=== PATIENT | male | born 1980 | race Caucasian/White ===

== ENCOUNTER → 2020-09-20 14:45 | Outpatient (BNVA) | payer OTHER, SELFPAY | PROVIDERS: PCP Internal Medicine; Referring Provider Internal Medicine; Visit Provider Internal Medicine Pulmonary Disease | DX: Z76.89 Persons encountering health services in other specified circumstances (principal) ==

== ENCOUNTER 2020-09-22 07:28 | Outpatient (REF) | payer OTHER, SELFPAY ==
[2020-09-22 09:14] LABS: Anion Gap 15 (12-20); Blood Urea Nitrogen 14 mg/dL (9-16); Calcium 8.6 mg/dL (8.4-10.2); Carbon Dioxide 22 mmol/L (22-29); Chloride 108 mmol/L (96-108); Estimated Glomerular Filt Rate > 60; Glucose Fasting 73 mg/dL (60-99); Sodium 141 mmol/L (135-145)
--- NOTE | 2020-09-22 13:24 | PFT_ITS ---
Forced vital capacity is slightly decreased. FEF1, FEF 25-75 were normal. MVV slightly decreased. Post bronchodilator therapy, there is no significant change. Total lung capacity slightly decreased. Diffusion capacity moderately decreased. CONCLUSION: Possible mild restrictive pulmonary disorder. No significant obstructive airway disorder. Decreased MVV, probably effort related and improved to normal after bronchodilator therapy. Decreased diffusion capacity is partly due to technical reason. Clinical correlation recommended. MD JOSE CRUZ Paez/MODL / [id number]
== END 2020-09-22 07:29 | disposition home or self-care (01) ==
LOC: HO.RESP 07:28
PROVIDERS: Visit Provider Internal Medicine Pulmonary Disease
DX: R06.00 Dyspnea, unspecified (principal); R06.02 Shortness of breath
CPT/HCPCS: 80048; 94060; 94727; 94729

== ENCOUNTER 2020-10-04 10:43 | Outpatient (REF) | payer OTHER, SELFPAY ==
--- NOTE | 2020-10-04 10:46 | CT_ITS ---
EXAMINATION: CT ANGIOGRAM CHEST WITH AND WITHOUT CONTRAST (CT PULMONARY ANGIOGRAM FOR PE) CLINICAL INFORMATION: Dyspnea, unspecified COMPARISON: None TECHNIQUE: Prior to contrast administration, noncontrast localization images were obtained. Subsequently, multidetector volumetric imaging was performed from the thoracic inlet to below the diaphragms following the administration of 80 mL Omnipaque 350 intravenous contrast. No contrast reaction reported Sagittal, coronal, and MIP oblique sagittal reformatted images were obtained on the CT workstation, uploaded to PACS, and reviewed. This CT examination was performed using dose optimization techniques as appropriate, variously including the following: *Automated exposure control *Adjustment of mA and/or kV according to patient size (this includes techniques or standardized protocols for targeted exams where dose is matched to indication/reason for exam; i.e. extremities or head) *Use of iterative reconstruction technique Total exam dose-length product 131 mGy-cm FINDINGS: QUALITY OF STUDY/CONTRAST BOLUS: Satisfactory. PULMONARY ARTERIES: No central or segmental pulmonary emboli. THORACIC AORTA: No aneurysm or dissection. LUNG: There is patchy ground-glass attenuation seen in both upper lobes, lower lobes, right middle lobe and lingular segments suggestive of lung parenchymal disease such as infiltrate or inflammatory process. No consolidation or obvious pulmonary nodules seen. PLEURA: No pleural effusion or pneumothorax. MEDIASTINUM: Normal heart size. No pericardial effusion. No hilar or mediastinal lymphadenopathy. No evidence of septal bowing or right heart strain. CHEST WALL/AXILLA: No axillary or internal mammary lymphadenopathy. OSSEOUS STRUCTURES: No lytic or sclerotic process seen. UPPER ABDOMEN: Unremarkable. No reflux of contrast into the hepatic veins to suggest elevated right heart pressures. CT/CT angio chest PE protocol IMPRESSION: 1. No evidence of PE. 2. No evidence of dissection or aneurysm. 3. Patchy ground-glass attenuation seen throughout both lungs likely inflammatory or infectious etiology. Infiltrate is strongly suspected. VTE: negative.
[2020-10-04] MEDS: iohexoL 350 MG/ML 100 ML INFUS..BTL 65 ML IV (11:33)
== END 2020-10-04 10:44 | disposition home or self-care (01) ==
LOC: HO.CT 10:43
PROVIDERS: PCP Internal Medicine; Visit Provider Internal Medicine Pulmonary Disease
DX: R60.0 Localized edema (principal)
CPT/HCPCS: 71275; Q9967

== ENCOUNTER → 2020-10-10 14:36 | Outpatient (BNVA) | payer OTHER, SELFPAY | PROVIDERS: PCP Internal Medicine; Visit Provider Internal Medicine Pulmonary Disease | DX: Z76.89 Persons encountering health services in other specified circumstances (principal) ==

== ENCOUNTER → 2020-11-03 13:47 | Outpatient (BNVA) | payer OTHER, SELFPAY | PROVIDERS: Visit Provider Internal Medicine Pulmonary Disease | DX: R06.00 Dyspnea, unspecified (principal) ==